=== PATIENT | female | born 1985 | race Two or more races ===

== ENCOUNTER 2025-04-01 08:15 | Inpatient (IN) | payer OTHER ==
[~2025-04-01] VITALS: Ht 167.6 cm; Wt 58.5 kg
[~2025-04-01 08:15] MED LIST: WELLBUTRIN SR150 MG PO
[2025-04-01 09:31] VITALS: BP 103/66
[2025-04-01 09:34] VITALS: BP 114/78
[2025-04-01 10:34] LABS: BASO % 0.7 % (0.1-1.2); EOS # 0.17 (0.04-0.54); HEMATOCRIT 39.7 % (34.1-44.9); HEMOGLOBIN 13.1 g/dL (11.2-15.7); LYMPH # 1.38 (1.18-3.74); LYMPH % 32.5 % (19.3-53.1); MEAN CORPUSCULAR HEMOGLOBIN 29.8 pg (25.6-32.2); MONO # 0.45 (0.24-0.82); MONO % 10.6 % (4.7-12.5); NEUT # 2.22 (1.56-6.13); NEUT % 52.2 % (34.0-71.1); PLATELET COUNT 306 K/uL (163-369); RED CELL DISTRIBUTION WIDTH 12.6 % (11.6-14.4)
[2025-04-01 10:35] LABS: COVID-19 AG NEGATIVE (NEGATIVE)
[2025-04-01 10:49] LABS: PH,URINE 6.5 (5.0-8.0); URINE APPEARANCE Clear; URINE BILIRRUBIN Negative (NEGATIVE); URINE BLOOD Moderate; URINE COLOR Yellow; URINE GLUCOSE Negative (NEGATIVE); URINE KETONE Negative (NEGATIVE); URINE LEUKOCYTE Negative; URINE NITRATE Negative; URINE PROTEIN Negative (NEGATIVE); URINE UROBILINOGEN 0.2 E.U./dl
[2025-04-01 10:54] LABS: URINE BACTERIA 832.2 uL (0.0-1933); URINE EPITHELIAL CELLS 16.7 uL (0.0-38.8); URINE RBC 16.3 uL (0.0-20.8); URINE WBC 7.9 uL (0.0-23.2)
[2025-04-01 11:02] LABS: PARTIAL THROMBOPLASTIN TIME 26.2 SECONDS (22.0-34.0); PROTHROMBIN TIME 10.9 SECONDS (9.0-11.5)
[2025-04-01 11:51] LABS: ALBUMIN 3.8 gm/dL (3.4-5.0); BILIRUBIN TOTAL 0.42 mg/dL (0.3-1.2); CALCIUM 8.6 mg/dL (8.5-10.1); CREATININE SERUM 0.64 mg/dL (0.55-1.02); GFR 101.76; GLOBULINA 2.8 G/DL (2.4-3.5); POTASSIUM 4.12 mEq/L (3.5-5.1); TOTAL PROTEIN 6.6 gm/dL (6.4-8.2)
[2025-04-07] MEDS ORDERED: CEFAZOLIN SODIUM 1,000 MG VIAL ONE ×2 (08:31→16:01)
[2025-04-07] MEDS ORDERED: POVIDONE-IODINE 118 ML BOTT TOP ONE (10:17)
[2025-04-07] MEDS ORDERED: HEMOSTATIC MATRIX 1 KIT KIT TOP ONE (12:00)
[2025-04-07] MEDS ORDERED: ONDANSETRON HCL 2 MG/ML VIAL ONE ×2 (13:28→16:01)
[2025-04-07] MEDS ORDERED: ONDANSETRON HCL 2 MG/ML VIAL IV ONE (13:30)
[2025-04-07] MEDS ORDERED: MORPHINE SULFATE 4 MG/ML VIAL IV ONE (13:30)
[2025-04-07] MEDS ORDERED: MORPHINE SULFATE 2 MG/ML CARTRIDGE IV SCH (17:00)
[2025-04-07] MEDS ORDERED: ONDANSETRON HCL 2 MG/ML VIAL IV SCH (17:00)
[2025-04-07] MEDS ORDERED: CEFAZOLIN SODIUM 1,000 MG VIAL IV SCH (17:00)
[2025-04-07 17:08] VITALS: BP 103/66
[2025-04-07] MEDS ORDERED: KETOROLAC TROMETHAMINE 30 MG VIAL IV SCH (18:23)
[2025-04-08 01:39] VITALS: BP 97/58
[2025-04-08] MEDS ORDERED: KETOROLAC TROMETHAMINE 10 MG TABLET PO SCH ×2 (06:00→12:00)
[2025-04-08 08:00] VITALS: BP 105/69
[2025-04-08] MEDS ORDERED: SIMETHICONE 125 MG CAPSULE PO SCH (09:00)
[2025-04-08] MEDS ORDERED: ACETAMINOPHEN 500 MG GEL..CAP PO SCH (12:00)
[2025-04-08] MEDS ORDERED: IBUprofen 800 MG TABLET PO SCH (13:00)
[2025-04-08 16:09] VITALS: BP 90/60
[2025-04-09 01:50] VITALS: BP 98/55
[2025-04-09 08:00] VITALS: BP 108/63
== END 2025-04-09 11:44 | disposition home or self-care (01) | DRG 743 ==
LOC: O/R 04-07 06:06 → SURH 04-07 08:15 → OB/GYN 04-07 13:46 → SURH 04-07 16:15 → OB/GYN 04-09 11:44
PROVIDERS: ADMIT Obstetrics & Gynecology; ATTEND Obstetrics & Gynecology
PROC: 0UT50ZZ Resection of Right Fallopian Tube, Open Approach (ICD-10-PCS; 2025-04-07)
PROC: 0UT00ZZ Resection of Right Ovary, Open Approach (ICD-10-PCS; 2025-04-07)
PROC: 0UT90ZZ Resection of Uterus, Open Approach (ICD-10-PCS; principal; 2025-04-07 16:15)
DX: D25.1 Intramural leiomyoma of uterus (principal); N80.03 Adenomyosis of the uterus; N72 Inflammatory disease of cervix uteri; N83.01 Follicular cyst of right ovary; N83.11 Corpus luteum cyst of right ovary; N80.201 Endometriosis of right fallopian tube, unspecified depth